=== PATIENT | male | born 1995 | race African-American/Black ===

== ENCOUNTER 2022-07-08 19:10 | Emergency (ER) | payer OTHER ==
[2022-07-08 19:15] VITALS: BP 116/77; PULSE 73; RESP 18; TEMP 98.3; BMI 25.8
== END 2022-07-08 20:10 | disposition home or self-care (01) ==
LOC: JERFT 19:10
DX: J06.9 Acute upper respiratory infection, unspecified (principal); R05.1 Acute cough; R09.81 Nasal congestion; M79.10 Myalgia, unspecified site; Z20.822 Contact with and (suspected) exposure to COVID-19
CPT/HCPCS: 0241U-QW; 71046-TC-FY; 99284-25